=== PATIENT | male | born 1980 | race Caucasian/White ===

== ENCOUNTER 2017-04-21 10:36 | Emergency (ER) | payer OTHER ==
[2017-04-21 10:52] VITALS: RESP 16; TEMP 97.7
--- NOTE | 2017-04-21 11:35 | EDPHY ---
H & P Time Seen by Provider: 04/21/17 10:58 HPI/ROS: This patient injured his ankle or foot 2 days ago while climbing. He was [place] and fell approximately 4 feet from the [place] and landed on 1 spot that did not have a pad on a rock that was protruding upward causing abrupt forced plantar flexion and pain to the proximal dorsal foot. He reports immediate severe pain with difficulty bearing weight. However had a at 90 minute hike out. He taped his ankle and used a hiked hers pull for support. Since that time he has mild pain at rest but still has significant moderate pain or more with any attempts to bear weight so he has been avoiding bearing weight by using crutches. Due to the ongoing symptoms and mild swelling, patient drove himself here by private vehicle for further evaluation. ROS: Constitutional: No complaints HEENT: No head injury or other complaints Neuro: No numbness or tingling Musculoskeletal: No neck or back injuries from the fall. No extremity injuries other than the left lower extremity Integumentary: No lacerations. Has a superficial abrasion in the medial ankles associated with this. 5 point ROS is otherwise negative. Past Medical/Surgical History: Prior shoulder injury treated [facility] Smoking Status: Never smoked Physical Exam: Physical Exam Vital signs are normal. General: No acute distress HEENT: Atraumatic. Eyes: Pupils equal and react to light. Extraocular motions are intact. Lungs: No respiratory distress. Cardiac: Brisk capillary refill is intact throughout. Pulses are 2+ and symmetric in the affected extremity. Skin: No rash or pallor. Extremities: Atraumatic normal except for left lower extremity: Left lower extremity: Notable for tenderness and mild to moderate swelling to the proximal dorsum of the foot. He also has minimal tenderness inferior to the lateral and medial malleoli without ecchymosis laterally-mild ecchymosis medially. No Achilles tenderness. No metatarsal tenderness. He has no proximal leg tenderness or knee tenderness or swelling. Neuro: Alert and oriented x3 with no sensorimotor deficits in the affected extremity. Initial differential diagnosis: Foot fracture, ankle fracture, sprain Constitutional: Initial Vital Signs Temperature (C) 36.5 C 04/21/17 10:49 Heart Rate 69 04/21/17 10:49 Respiratory Rate 16 04/21/17 10:49 Blood Pressure 133/72 H 04/21/17 10:49 O2 Sat (%) 98 04/21/17 10:49 O2 Delivery Mode Room Air Allergies/Adverse Reactions: amoxicillin Allergy (Verified 04/21/17 10:49) Penicillins Allergy (Verified 04/21/17 10:49) Home Medications: Medication Instructions Recorded Adderall 10 MG (*) 04/21/17 MDM/Departure - MDM Diagnostics: Three-view foot x-ray: In the oblique view there is evidence of a nondisplaced talus fracture by my interpretation. No other fractures are appreciated. Imaging Results: Imaging Impressions Ankle X-Ray 04/21/17 11:29 Impression: Suspected nondisplaced talar fracture is not evident on the ankle series. Imaging: Discussed imaging studies w/ director enterprise data architecture Radiologist, I viewed and interpreted images myself ED Course/Re-evaluation: Patient declined analgesics. I discussed the patient's foot x-rays with our radiologist who confirms the talus fracture that I noticed. He recommends the ankle x-rays. I reviewed the ankle x-rays myself and read them as revealing no other associated fractures by my interpretation. This patient is placed in no walker boot by our tech. He is neurovascularly intact post splint application I counseled the patient regarding his talus fracture. The patient has been seen issue sports medicine the past will follow up with see sports medicine Orthopedics for a follow-up regarding his nondisplaced talus fracture. Discussion: Patient with talus fracture and likely a minor ankle sprain-grade 1 though it did not pursue anterior drawer testing with presence of fracture. He is neurovascularly intact with no other concerning findings no evidence of other injuries from his fall. - Depart Disposition: Home, Routine, Self-Care Clinical Impression: Fracture, talus closed Qualifiers: Encounter type: initial encounter Talus location: dome of talus Fracture alignment: nondisplaced Laterality: left Qualified Code(s): S92.145A - Nondisplaced dome fracture of left talus, initial encounter for closed fracture Condition: Good Instructions: Crutch Instructions (ED), Foot Fracture in Adults (ED) Additional Instructions: Diagnosis: Talus fracture of left foot Plan: Ibuprofen and Tylenol for swelling and pain as needed. Use crutches. No weight-bearing on this injury. Use the splint whenever up and about. Call Sports Medicine to arrange follow-up appointment for sometime within the next 2-5 days. Return for any significant worsening despite the treatment plan. Referrals: NONE *PRIMARY CARE P,. [Primary Care Provider] - As per Instructions Paul West MD [Medical Doctor] - As per Instructions
[2017-04-21 12:01] VITALS: BP 120/68; PULSE 62; O2SAT 96
== END 2017-04-21 11:59 | disposition home or self-care (01) ==
LOC: CED 10:36
DX: S92.145A Nondisplaced dome fracture of left talus, initial encounter for closed fracture (principal); W17.89XA Other fall from one level to another, initial encounter; Y99.8 Other external cause status; Y93.39 Activity, other involving climbing, rappelling and jumping off
CPT/HCPCS: 73610-PO; 73630-PO; L4386